=== PATIENT | female | born 1995 | race Two or more races ===

== ENCOUNTER 2018-05-06 12:01 | Emergency (ER) | payer MEDICAID ==
[~2018-05-06] VITALS: Ht 167.6 cm; Wt 59.0 kg
[2018-05-06] MEDS ORDERED: PANTOPRAZOLE 40 MG/10 ML VIAL IV STA (12:23)
[2018-05-06] MEDS ORDERED: SODIUM CHLORIDE 0.9% 1,000 ML IVB ONE (12:23)
[2018-05-06] MEDS ORDERED: ONDANSETRON HCL 4 MG/2 ML VIAL IV ONE (12:30)
[2018-05-06 12:39] LABS: Urine Bacteria NONE SEEN /hpf (None Seen); Urine Blood Negative /uL (Negative); Urine Mucus FEW (None Seen); Urine Specific Gravity 1.027 (1.001-1.035); Urine WBC 13 /hpf (0 - 5)
[2018-05-06 12:52] LABS: Basophils # (auto) 0.1 uL; Basophils % (auto) 0.9 % (0.0-2.0); Eosinophils # (auto) 0.1 uL; Eosinophils % (auto) 0.7 % (0.0-7.0); Lymphocytes # (auto) 0.7 uL; Mean Corpuscular Hemoglobin 27.7 pg (28.0-32.0); Mean Corpuscular Hgb Conc. 32.5 g/dL (32.0-36.0); Mean Corpuscular Volume 85.1 fL (80.0-100.0); Monocytes # (auto) 0.7 uL; Monocytes % (auto) 5.8 % (0.0-12.0); Neutrophils # (auto) 10.4 uL; Neutrophils % (auto) 86.6 % (37.0-80.0); Platelet Count (auto) 265 10^3/uL (140-450); Red Cell Distribution Width 15.6 % (11.8-14.3)
[2018-05-06 12:57] VITALS: BP 134/75
[2018-05-06 13:08] LABS: Calcium 8.8 mg/dL (8.5-10.1); Potassium 3.6 mmol/L (3.5-5.1)
[2018-05-06 13:11] LABS: BUN/Creatinine Ratio 30.8; Bilirubin, Total 0.4 mg/dL (0.2-1.0); Total Protein 7.7 g/dL (6.4-8.2)
== END 2018-05-06 15:22 | disposition home or self-care (01) ==
LOC: ER 12:01
DX: O23.41 Unspecified infection of urinary tract in pregnancy, first trimester (principal); O21.9 Vomiting of pregnancy, unspecified; O26.891 Other specified pregnancy related conditions, first trimester; F12.90 Cannabis use, unspecified, uncomplicated; J45.909 Unspecified asthma, uncomplicated; Z3A.01 Less than 8 weeks gestation of pregnancy
CPT/HCPCS: 36415; 76801; 80053; 81001; 81025; 85025; 94761; 96361; 96374; 96375; 99284; C9113; J2405; J7030